=== PATIENT | male | born 1965 | race Caucasian/White ===

== ENCOUNTER 2017-12-11 11:32 | Emergency (ER) | payer MEDICAID, OTHER ==
[2017-12-11] MEDS ORDERED: Sodium Chloride 0.9% 10 ML Syringe FLUSH PRN (12:25)
[2017-12-11] MEDS ORDERED: Sodium Chloride 0.9% 500 ML IV ONE ×2 (12:25→14:47)
--- NOTE | 2017-12-11 13:44 | CT ---
Head CT Technique: Multiple axial sections through the brain were obtained. Intravenous contrast was not utilized. Comparison: No prior study. Findings: Ventricles along with basal cisterns and sulci over the convexities are within normal limits for the patient's age. No abnormal parenchymal densities are seen. No evidence of intracranial hemorrhage. No midline shift or mass effect is seen. Bone window settings were reviewed which shows minimal mucosal thickening within the sphenoid sinus and moderate mucosal thickening within the ethmoid sinuses and mild mucosal thickening within the frontal sinus. No acute calvarial abnormality is seen. Impression: 1. Sinus disease most likely chronic. 2. No acute intracranial abnormality is identified. Diagnostic code #2
--- NOTE | 2017-12-11 16:25 | EDM.PDOC ---
ED HPI GENERAL MEDICAL PROBLEM - General Chief Complaint: Neuro Symptoms/Deficits Stated Complaint: NUMBNESS IN BOTH LEGS Time Seen by Provider: 12/11/17 11:55 Source of Information: Reports: Patient, RN Notes Reviewed - History of Present Illness INITIAL COMMENTS - FREE TEXT/NARRATIVE: 52 year old male has been referred here from [facility] with multiple episodes of falling, near syncope the past 24 hours. He states he "fell 4 times yesterday" and once this morning. He feels like his "legs just gave out" He states he has been somewhat lightheaded and dizzy, also had severe vertigo worse with motion yesterday, better today. No focal weakness or paralysis that he can describe. No speech difficulty. No chest pain or difficulty breathing. No English, nausea or vomiting. Hx of CAD, has about "9 stents" On multiple meds for Htn, diabetes, CAD. Not aware - Related Data Allergies Allergy/AdvReac Type Severity Reaction Status Date / Time No Known Allergies Allergy Verified 12/11/17 11:45 Home Meds: Home Meds Clopidogrel [Plavix] 75 mg PO DAILY 12/11/17 [History] Insulin Aspart [Novolog Flexpen] 0 units SUBCUT DAILY 12/11/17 [History] Insulin Detemir [Levemir Flextouch] 11 units SUBCUT BID 12/11/17 [History] Isosorbide Mononitrate [Imdur] 30 mg PO DAILY 12/11/17 [History] Lisinopril [Prinivil] 20 mg PO DAILY 12/11/17 [History] Metoprolol Succinate [Toprol XL] 25 mg PO BID 12/11/17 [History] atorvaSTATin [Lipitor] 40 mg PO DAILY 12/11/17 [History] metFORMIN [Glucophage XR] 500 mg PO BID 12/11/17 [History] Past Medical History HEENT History: Reports: Impaired Vision Cardiovascular History: Reports: Hypertension, VT, Stents Endocrine/Metabolic History: Reports: Diabetes, Type II - Past Surgical History HEENT Surgical History: Reports: Tonsillectomy Social & Family History - Tobacco Use Smoking Status *Q: Current Every Day Smoker Years of Tobacco use: 30 Packs/Tins Daily: 0.5 - Caffeine Use Caffeine Use: Reports: Coffee - Recreational Drug Use Recreational Drug Use: No ED ROS GENERAL - Review of Systems Review Of Systems: See Below Constitutional: Denies: Fever, Chills, Diaphoresis HEENT: Reports: Vertigo. Denies: Sinus Problem, Throat Pain, Vision Change Respiratory: Reports: Cough (chronic). Denies: Shortness of Breath Cardiovascular: Reports: Lightheadedness. Denies: Chest Pain, Palpitations GI/Abdominal: Denies: Abdominal Pain, Diarrhea, Nausea, Vomiting Musculoskeletal: Denies: Neck Pain, Shoulder Pain, Arm Pain, Leg Pain Skin: Denies: Rash Neurological: Reports: Difficulty Walking (mild, feels unsteady on his feet). Denies: Numbness ED EXAM, NEURO - Physical Exam Exam: See Below General Appearance: Alert, No Apparent Distress Eye Exam: Bilateral Eye: PERRL, Other (no visible nystagmus at this time) Nose: Normal Inspection Throat/Mouth: Normal Inspection, Normal Oropharynx Head Exam: Atraumatic. No: Facial Swelling Neck: Supple, Full Range of Motion. No: Lymphadenopathy (L), Lymphadenopathy (R ) Respiratory/Chest: No Respiratory Distress, Lungs Clear, Normal Breath Sounds Cardiovascular: Regular Rate, Rhythm GI/Abdominal: Soft, Non-Tender Neurological: Alert, No Motor/Sensory Deficits, Oriented x 3, Other (finger to nose testing normal, [place]) Back Exam: No: CVA Tenderness (L), CVA Tenderness (R) Extremities: Normal Inspection. No: Pedal Edema, Leg Pain Skin Exam: Warm, Dry, Normal Color EKG INTERPRETATION EKG Date: 12/11/17 Rhythm: NSR [place]: Normal P-Wave: Present QRS: Other (q waves lead III) ST-T: Normal Course - Vital Signs Last Recorded V/S: Last Vital Signs Temp 97.5 F 12/11/17 11:42 Pulse 75 12/11/17 11:42 Resp 16 12/11/17 11:42 BP 114/78 12/11/17 11:42 Pulse Ox 96 12/11/17 11:42 Orthostatic Blood Pressure [ 111/74 Standing] Orthostatic Blood Pressure [ 109/83 Sitting] Orthostatic Blood Pressure [ 105/73 Supine] - Orders/Labs/Meds Orders: Active Orders 24 hr Category Date Time Status EKG 12 Lead [EKG Documentation Completion] [RC] STAT Care 12/11/17 12:24 Active Peripheral IV Care [RC] . DIRECTED Care 12/11/17 12:26 Active Peripheral IV Insertion Adult [OM.PC] Stat Oth 12/11/17 12:25 Ordered Labs: Laboratory Tests 12/11/17 12/11/17 Range/Units 12:30 12:30 WBC 10.33 H (4.23-9.07) K/mm3 RBC 5.21 (4.63-6.08) M/mm3 Hgb 16.1 (13.7-17.5) gm/L Hct 46.6 (40.1-51.0) % MCV 89.4 (79.0-92.2) fl MCH 30.9 (25.7-32.2) pg MCHC 34.5 (32.2-35.5) g/dl RDW Std Deviation 43.9 (35.1-43.9) fL Plt Count 255 (163-337) K/mm3 MPV 10.3 (9.4-12.3) fl Neut % (Auto) 61.9 (34.0-67.9) % Lymph % (Auto) 26.2 (21.8-53.1) % Bailey % (Auto) 8.5 (5.3-12.2) % Eos % (Auto) 2.8 (0.8-7.0) Baso % (Auto) 0.4 (0.1-1.2) % Neut # (Auto) 6.39 H (1.78-5.38) K/mm3 Lymph # (Auto) 2.71 (1.32-3.57) K/mm3 Bailey # (Auto) 0.88 H (0.30-0.82) K/mm3 Eos # (Auto) 0.29 (0.04-0.54) K/mm3 Baso # (Auto) 0.04 (0.01-0.08) K/mm3 Sodium 137 (136-145) mEq/L Potassium 4.2 (3.5-5.1) mEq/L Chloride 100 (98-107) mEq/L Carbon Dioxide 24 (21-32) mEq/L Anion Gap 17.2 H (5-15) BUN 21 H (7-18) mg/dL Creatinine 1.3 (0.7-1.3) mg/dL Est Cr Clr Drug Dosing 65.04 mL/min Estimated GFR (MDRD) 58 (>60) mL/min BUN/Creatinine Ratio 16.2 (14-18) Glucose 128 H (74-106) mg/dL Calcium 9.3 (8.5-10.1) mg/dL Total Bilirubin 0.5 (0.2-1.0) mg/dL AST 22 (15-37) U/L ALT 35 (16-63) U/L Alkaline Phosphatase 87 (46-116) U/L Total Protein 7.5 (6.4-8.2) g/dl Albumin 3.9 (3.4-5.0) g/dl Globulin 3.6 gm/dL Albumin/Globulin Ratio 1.1 (1-2) Meds: Medications Discontinued Medications Generic Name Dose Route Start Last Admin Trade Name Freq PRN Reason Stop Dose Admin Sodium Chloride 500 mls @ 999 mls/hr 12/11/17 12:25 12/11/17 12:43 Normal Saline IV 12/11/17 12:55 999 mls/hr .BOLUS ONE Administration Sodium Chloride 500 mls @ 999 mls/hr 12/11/17 14:47 12/11/17 14:57 Normal Saline IV 12/11/17 15:17 999 mls/hr .BOLUS ONE Administration Sodium Chloride 10 ml 12/11/17 12:25 12/11/17 12:44 Saline Flush FLUSH 10 ml ASDIRECTED PRN Administration Keep Vein Open Departure - Departure Time of Disposition: 16:21 Disposition: Home, Self-Care 01 Condition: Fair Clinical Impression: Dehydration, Vertigo Hypotension Qualifiers: Hypotension type: hypotension due to drug Qualified Code(s): I95.2 - Hypotension due to drugs - Discharge Information Instructions: Vertigo, [id number], Dehydration, Adult, [id number], Hypotension Referrals: Mindy Samaniego PA-C [Primary Care Provider] - Forms: ED Department Discharge Additional Instructions: stop the metropolol for now, continue other current medications as prescribed, Continue to check glucose regularlly, blood pressure and heart rate 2 to 3 times daily. Continue to drink plenty of water, rest, increase activity slowly as tolerated. Follow up with Maricruz Samaniego at the [facility] or Sunday of this week, call for appt., Return to ED if symptoms worsening in any way. - My Orders Last 24 Hours: My Active Orders 12/11/17 12:24 EKG 12 Lead [EKG Documentation Completion] [RC] STAT 12/11/17 12:25 Peripheral IV Insertion Adult [OM.PC] Stat 12/11/17 12:26 Peripheral IV Care [RC] . DIRECTED - Assessment/Plan Last 24 Hours: My Active Orders 12/11/17 12:24 EKG 12 Lead [EKG Documentation Completion] [RC] STAT 12/11/17 12:25 Peripheral IV Insertion Adult [OM.PC] Stat 12/11/17 12:26 Peripheral IV Care [RC] . DIRECTED
== END 2017-12-11 16:39 | disposition home or self-care (01) ==
LOC: JD.ED 11:32
DX: E86.0 Dehydration (principal); I95.9 Hypotension, unspecified; I10 Essential (primary) hypertension; E11.9 Type 2 diabetes mellitus without complications; F17.210 Nicotine dependence, cigarettes, uncomplicated; Z79.4 Long term (current) use of insulin; Z79.899 Other long term (current) drug therapy
CPT/HCPCS: 36415; 70450; 80053; 85025; 93005; 96360; 96361; 99285; J7040; J7050; 93010; 99283-25